=== PATIENT | male | born 1985 | race Hispanic/Latino ===

== ENCOUNTER 2017-05-01 12:56 | Emergency (ER) | payer SELFPAY ==
[2017-05-01] MEDS ORDERED: Adacel (T-DAP) 0.5 ML VIAL ONE (13:32)
--- NOTE | 2017-05-01 13:54 | RAD ---
3 VIEWS RIGHT HAND: Date: 05/01/17 COMPARISON: None. HISTORY: Right hand injury after falling on a window. FINDINGS: Three views of the right hand show no evidence of acute fracture or dislocation. Mild dorsal soft tis jeniffer swelling is seen. No radiopaque foreign body is seen. IMPRESSION: Unremarkable exam. POS: [facility]
--- NOTE | 2017-05-01 13:56 | RAD ---
RIGHT FOREARM 2 VIEWS: Date: 05/01/17 HISTORY: Injury, right forearm pain. FINDINGS/IMPRESSION: The right radius and ulna are intact. There are small radiopaque foreign bodies in the soft tissues o f the proximal right forearm, one located in the proximal ulnar soft tissues and the other posteriorl y close to the olecranon. POS: [facility]
[2017-05-01] MEDS ORDERED: Bacitracin Zinc 1 Packet ONE (14:25)
== END 2017-05-01 13:27 | disposition home or self-care (01) ==
LOC: ERS 12:56
DX: S50.811A Abrasion of right forearm, initial encounter (principal); S60.511A Abrasion of right hand, initial encounter; K21.9 Gastro-esophageal reflux disease without esophagitis; W25.XXXA Contact with sharp glass, initial encounter; Y92.69 Other specified industrial and construction area as the place of occurrence of the external cause; Y99.0 Civilian activity done for income or pay
CPT/HCPCS: 29125; 90471; 90715

== ENCOUNTER 2017-05-29 11:52 | Emergency (ER) | payer SELFPAY ==
--- NOTE | 2017-05-29 12:30 | RAD ---
CHEST ONE VIEW: HISTORY: Cough. COMPARISON: 07/07/2014 FINDINGS: Heart size and mediastinum are within normal limits. Lungs are clear of any infiltrative process. N o interval change since the prior exam. IMPRESSION: No active intrathoracic disease. POS: [facility]
[2017-05-29] MEDS ORDERED: Ibuprofen 200 MG TAB ONE (13:26)
== END 2017-05-29 13:15 | disposition home or self-care (01) ==
LOC: ERS 11:52
DX: J06.9 Acute upper respiratory infection, unspecified (principal); J01.90 Acute sinusitis, unspecified; K21.9 Gastro-esophageal reflux disease without esophagitis
CPT/HCPCS: 71045; 94640; 99406; J7620

== ENCOUNTER 2017-07-16 16:32 | Inpatient (IN) | payer SELFPAY ==
[2017-07-16] MEDS ORDERED: ISOVUE-370 76%-LOCM 1 ML ONE (16:41)
[2017-07-16] MEDS ORDERED: Iopamidol 370 76% 50 ML VIAL FS ONE (16:41)
[2017-07-16 17:16] LABS: #Eosinphils 0.2 thou/uL (0.0-0.7); #Lymphocytes 2.4 thou/uL (1.20-3.40); #Neutrophils 9.4 thou/uL (1.40-6.50); %Basophils 0.3 % (0.0-1.0); %Eosinophils 1.6 % (0.0-10.0); %Lymphocytes 18.6 % (21.0-51.0); %Monocytes 7.3 % (0.0-10.0); %Neutrophils 72.2 % (42.0-75.0); Hemoglobin 15.6 g/dL (14.0-18.0); Mean Corpuscular HGB CONC 34.4 g/dL (32.0-36.0); Mean Corpuscular Hemoglobin 30.7 pg (27.0-31.0); Mean Corpuscular Volume 89.1 fl (80.0-94.0); Mean Platelet Volume 7.3 fL (7.4-10.4); Platelet Count 269 thou/uL (130-400); RBC Distribution Width 12.4 % (11.5-14.5); Red Blood Cell (RBC) Count 5.08 mill/uL (4.70-6.10); White Blood Cell (WBC) Count 13.1 thou/uL (4.8-10.8)
[2017-07-16 17:32] LABS: ALT (SGPT) 37 U/L (8-55); AST (SGOT) 21 U/L (5-34); Albumin 4.2 g/dL (3.5-5.0); Alkaline Phosphatase 113 U/L (40-150); Anion Gap 13 mmol/L (10-20); BUN (Urea Nitrogen) 11 mg/dL (8.9-20.6); Bilirubin, Total 0.4 mg/dL (0.2-1.2); Calc. Creatinine Clearance 0 mL/min (70-130); Calcium 9.3 mg/dL (7.8-10.44); Carbon Dioxide 23 mmol/L (22-29); Chloride 104 mmol/L (98-107); Estimated GFR-MDRD Greater than 90; Globulin 3.4 g/dL (2.4-3.5); Glucose 103 mg/dL (70-105); Lipase 21 U/L (8-78); Potassium 3.9 mmol/L (3.5-5.1); Protein, Total 7.6 g/dL (6.0-8.3); Sodium 136 mmol/L (136-145)
[2017-07-16 17:33] LABS: Bilirubin Negative (Negative); Blood, Urine Negative (Negative); Clarity CLEAR (Clear); Glucose, Urine (Dipstick) Negative (Negative); Leukocyte Negative (Negative); Nitrite Negative (Negative); Protein, Urine (Dipstick) Negative (Neg-Trace); Specific Gravity, Urine 1.022 (1.002-1.036); Urobilinogen 0.2 mg/dL (0.2-1.0); pH, Urine 5.5 (5.0-9.0)
[2017-07-16] MEDS ORDERED: Ondansetron ODT 4 MG TAB ONE (21:11)
[2017-07-16] MEDS ORDERED: Morphine 4 MG/ML VIAL ONE ×2 (21:11→22:18)
--- NOTE | 2017-07-16 22:11 | CT ---
CT OF THE ABDOMEN AND PELVIS WITH CONTRAST: Comparison: None. History: Right upper quadrant and right lower quadrant abdominal pain as well as epigastric pain afte r eating. Technique: Multiple contiguous axial images were obtained through the abdomen and pelvis with contras t. PO contrast was administered. Coronal reformats were performed. FINDINGS: The liver, gallbladder, kidneys, adrenal glands, spleen, and pancreas are unremarkable. No free air, free fluid, or stranding changes are seen in the abdomen or pelvis. The large and small bowel are unremarkable. The appendix is unremarkable. No abdominal or pelvic lymp hadenopathy are seen. The osseous structures, visualized inferior thorax and abdominal wall soft tissues are unremarkable. IMPRESSION: No evidence of acute intraabdominal/pelvic abnormality. POS: [facility]
[2017-07-16] MEDS ORDERED: Azithromycin 500 MG VIAL ONE (22:18)
[2017-07-16] MEDS ORDERED: Vancomycin HCl 25 MG/ML Oral PO SCH (22:30)
[2017-07-16] MEDS ORDERED: Morphine 4 MG/ML VIAL SLOW IVP PRN (23:52)
[2017-07-16] MEDS ORDERED: Sodium Chloride 0.9% 1,000 ML IV SCH (23:53)
[2017-07-16] MEDS ORDERED: Ondansetron ODT 4 MG TAB SL PRN (23:53)
[2017-07-16] MEDS ORDERED: Acetaminophen 325 MG TAB PO PRN (23:53)
[2017-07-16] MEDS ORDERED: Ondansetron HCl/PF 4 MG/2 ML Vial IVP PRN (23:53)
[2017-07-17] MEDS ORDERED: Ondansetron HCl/PF 4 MG/2 ML Vial IVP PRN (02:09)
[2017-07-17] MEDS ORDERED: Enoxaparin Sodium 40 MG/0.4 ML SYRINGE SC SCH (02:09)
[2017-07-17] MEDS ORDERED: Acetaminophen 325 MG TAB PO PRN (02:09)
[2017-07-17] MEDS ORDERED: Ondansetron ODT 4 MG TAB PO PRN (02:09)
[2017-07-17 05:14] LABS: #Eosinphils 0.2 thou/uL (0.0-0.7); #Lymphocytes 2.8 thou/uL (1.20-3.40); #Monocytes 0.9 thou/uL (0.11-0.59); #Neutrophils 5.9 thou/uL (1.40-6.50); %Basophils 0.1 % (0.0-1.0); %Eosinophils 1.9 % (0.0-10.0); %Lymphocytes 28.9 % (21.0-51.0); %Neutrophils 60.2 % (42.0-75.0); Hemoglobin 13.9 g/dL (14.0-18.0); Mean Corpuscular HGB CONC 33.4 g/dL (32.0-36.0); Mean Corpuscular Hemoglobin 29.6 pg (27.0-31.0); Mean Corpuscular Volume 88.8 fl (80.0-94.0); Mean Platelet Volume 7.6 fL (7.4-10.4); Platelet Count 241 thou/uL (130-400); RBC Distribution Width 12.4 % (11.5-14.5); Red Blood Cell (RBC) Count 4.69 mill/uL (4.70-6.10); White Blood Cell (WBC) Count 9.7 thou/uL (4.8-10.8)
[2017-07-17] MEDS: HYDROcodone/Acetaminophen 5/325 mg Tablet PO PRN ×4 (05:48→21:02)
[2017-07-17 05:49] LABS: Anion Gap 13 mmol/L (10-20); BUN (Urea Nitrogen) 7 mg/dL (8.9-20.6); Calc. Creatinine Clearance 146 mL/min (70-130); Calcium 8.6 mg/dL (7.8-10.44); Carbon Dioxide 25 mmol/L (22-29); Chloride 103 mmol/L (98-107); Estimated GFR-MDRD Greater than 90; Glucose 81 mg/dL (70-105); Magnesium 2.2 mg/dL (1.6-2.6); Potassium 3.6 mmol/L (3.5-5.1); Sodium 137 mmol/L (136-145)
[2017-07-17] MEDS: Ciprofloxacin 500 MG TAB PO SCH ×2 (05:49→20:10)
[2017-07-17] MEDS ORDERED: Vancomycin HCl 25 MG/ML Oral PO SCH (06:00)
--- NOTE | 2017-07-17 06:04 | HP ---
DATE OF ADMISSION: 07/17/2017 TIME OF SERVICE: 0300 PRIMARY CARE PHYSICIAN: Breanne. CHIEF COMPLAINT: Abdominal pain and diarrhea. HISTORY OF PRESENT ILLNESS: Mr. Rogers is a 32-year-old man with no past medical hist ory except for gastroesophageal reflux who presents to the emergency department today for evaluation of ongoing abdominal pain and diarrhea. The patient states approximately 2 weeks ago he started having abdominal cramps and then diarrhea of increasing frequency, basically having watery stools 10 times a day now. He has mainly right upper a nd right lower quadrant pain, but his whole belly is distended and tender. He has had no fevers or c hills. No nausea and vomiting. No chest pain or shortness of breath. He is able to eat and keep st uff down, he has some epigastric pain after eating. The patient saw his PCP about 5 days ago, was ap parently put on some medications and is currently awaiting results. Workup in the ER revealed watery stools, no gross blood and per their notes some peritoneal signs, wh ich I cannot reproduce. The patient denies any recent travel, no undercooked foods, no bad or rotten foods, and lives on city [place]. PAST MEDICAL HISTORY: Gastroesophageal reflux disease. PAST SURGICAL HISTORY: None. HOME MEDICATIONS: Dicyclomine 20 mg p.o. q.i.d. p.r.n. abdominal spasm, no recent antibiotics. ALLERGIES: NKDA. FAMILY HISTORY: Negative for clotting or bleeding disorder. No immune dysfunction. SOCIAL HISTORY: Significant for social alcohol and some marijuana use. No tobacco or IV drug use. No recent travel. No imported foods. No livestock contact and no sick contacts. REVIEW OF SYSTEMS: A 10-point review of systems was performed and is negative for all systems except as stated in HPI. PHYSICAL EXAMINATION: VITAL SIGNS: Temperature 98.5, pulse 100, blood pressure 129/85, respiratory rate 16, satting 98% on room air. Since admission, his heart rate has come down in the 80s. GENERAL: He is awake. He is alert. He is oriented x3, well-developed, well-nourished [place] H[place] n male appears to be in no distress. HEENT: Normocephalic, atraumatic. Pupils equal, round, react to light bilaterally. Mucous membrane s moist. No visible lesion. No thrush. NECK: Supple, without lymphadenopathy, JVD, or thyromegaly. Normal carotid upstroke. There are no bruits. RESPIRATORY: Lungs clear to auscultation bilaterally. He has good air movement. Symmetrical chest excursion. No wheezes, no rales, no rhonchi. CARDIOVASCULAR: Normal cardiac and regular. Normal S1 and S2. No S3 or S4. No murmurs, no rubs. ABDOMEN: Soft, is distended and tympanitic. He has scant high pitched bowel sounds present in all 4 quadrants. He is tender to palpation diffusely. There is no rebound. He has no guarding. No dariusz toneal signs with heel tap. EXTREMITIES: No cyanosis or clubbing. Trace pedal edema. He has 2+ dorsalis pedis, and posterior t ibial pulses bilaterally. SKIN: Warm, moist, and well perfused. He has no rashes, no lesions. MUSCULOSKELETAL: Normal to inspection. No inflamed joints. No palpable effusions. He had good ran ge of motion. NEUROLOGIC: Cranial nerves II-XII to be grossly intact. He has no focal neurologic deficits, normal speech, 5/5 strength in all 4 extremities and no discoordination. LABORATORY DATA: Sodium 136, potassium 3.8, chloride 104, bicarb 23, BUN 11, creatinine 0.82, glucos e of 103, and calcium of 9.3. The liver function, bilirubin within normal limits. CBC showed a whit e count 13.1 with normal differential, hemoglobin 15.6, hematocrit of 45.2, platelet count is 269,000 . Stool studies showed C. diff positive for antigen and toxin, Campylobacter positive, Shigella negativ e, fecal occult blood positive and fecal leukocytes positive. Rapid parasite negative. Urinalysis w as clean. A CT scan of the abdomen and pelvis showed no acute intra-abdominal abnormalities. ASSESSMENT AND PLAN: 1. Infectious colitis. The patient was positive for C. diff and Campylobacter. We will cover those . He is having mostly watery diarrhea, no visible blood. I suspect Clostridium difficile is really the culprit and he is just positive for Campylobacter. He received azithromycin in the Emergency Dep artment, and vancomycin 125 p.o. We will increase him to 250 p.o. q.i.d. of the vancomycin and 500 mg of Cipro b.i.d. Continue IV fluids at 125 mL per hour. Repeat morning labs. Once he is able to ke ep up with outputs he should be able to go home and finish his treatment. 2. Systemic inflammatory response syndrome versus early sepsis, heart rate on arrival was over 100, elevated white blood cell count and a bacterial infection of the abdomen. Lactic acid was not perfor med and after getting fluids it is likely not going to be helpful at this point. This was present on admission, as was the Clostridium difficile. Continue hydration.
[2017-07-17] MEDS: Sodium Chloride 0.9% 1,000 ML IV SCH ×3 (06:27→20:16)
[2017-07-17] MEDS: Vancomycin HCl 25 MG/ML Oral PO SCH ×4 (08:04→21:05)
[2017-07-17] MEDS: Famotidine 20 MG TAB PO SCH ×2 (08:04→20:57)
[2017-07-17] MEDS: Enoxaparin Sodium 40 MG/0.4 ML SYRINGE SC SCH (08:05)
--- NOTE | 2017-07-17 10:12 | PDOC.PN ---
- Subjective Encounter Start Date: 07/17/17 Encounter Start Time: 10:05 Subjective: f/u for infectious colitis with C. difficile and ?Campylobacter on Cipro an -: Vancomycin po. Feeling a little better overall. - Objective Resuscitation Status: Resuscitation Status FULL:Full Resuscitation MAR Reviewed: Yes Vital Signs & Weight: Vital Signs (12 hours) Temp Pulse Resp BP Pulse Ox 07/17/17 08:00 97.9 F 70 20 113/73 94 L 07/17/17 02:09 97.5 F L 85 18 107/68 94 L 07/16/17 23:50 98.4 F 97 18 118/72 94 L Weight Weight 190 lb 14.725 oz I&O: 07/16/17 07/17/17 07/18/17 06:59 06:59 06:59 Intake Total 500 180 Balance 500 180 Result Diagrams: 07/17/17 04:21 07/17/17 04:21 Additional Labs: Microbiology 07/16/17 18:20 Stool - Pending Stool Occult Blood (CARO) - Final 07/16/17 18:20 Stool - Pending Stool Lactoferrin - Final 07/16/17 18:20 Stool - Pending Rapid Parasite Screen - Final 07/16/17 18:20 Stool - Pending Campylobacter Antigen Assay - Final 07/16/17 18:20 Stool - Pending Shiga Toxin Test - Final 07/16/17 18:20 Stool - Pending C. difficile GDH Antigen & Toxins - Final Laboratory Tests 07/16/17 17:01 WBC 13.1 H Radiology Reviewed by me: Yes (CT abd/pel - no acute process) Phys Exam - Physical Examination Constitutional: NAD HEENT: PERRLA, moist MMs, oral pharynx no lesions Neck: no nodes, no JVD, supple Respiratory: no wheezing, no rales, no rhonchi, clear to auscultation bilateral Cardiovascular: RRR mild TTP in RUQ, no rebound or guarding Gastrointestinal: soft, no distention, positive bowel sounds Musculoskeletal: no edema, pulses present Neurological: non-focal, normal sensation, moves all 4 limbs Psychiatric: A&O x 3 Skin: no rash, normal turgor, cap refill <2 seconds Dx/Plan (1) Infectious colitis Code(s): A09 - INFECTIOUS GASTROENTERITIS AND COLITIS, UNSPECIFIED Status: Acute Comment: + C. difficile, continue Vancomycin 250mg po QID, continue Cipro with + Campylobacter, continue IVF's, antiemetics prn (2) SIRS (systemic inflammatory response syndrome) Code(s): R65.10 - SIRS OF NON-INFECTIOUS ORIGIN W/O ACUTE ORGAN DYSFUNCTION Status: Acute Comment: Secondary to #1, continue tx as outlined in #1 (3) Abdominal pain Code(s): R10.9 - UNSPECIFIED ABDOMINAL PAIN Status: Acute Qualifiers: Abdominal location: right lower quadrant Qualified Code(s): R10.31 - Right lower quadrant pain Comment: Secondary to #1, supportive mgmt, pain control as indicated (4) GERD (gastroesophageal reflux disease) Code(s): K21.9 - GASTRO-ESOPHAGEAL REFLUX DISEASE WITHOUT ESOPHAGITIS Status: Chronic Comment: Continue Pepcid 20mg BID - Plan continue antibiotics, DVT proph w/SCDs Stable currently -: Continue Vancomycin 250mg QID -: Continue Cipro 500mg BID -: Continue IVF's -: AM lab: BMP, CBC * .
[2017-07-18] MEDS: HYDROcodone/Acetaminophen 5/325 mg Tablet PO PRN ×2 (04:39→11:36)
[2017-07-18 05:00] LABS: Hemoglobin 14.1 g/dL (14.0-18.0); Lymphocytes 34 % (21-51); MDiff Complete? YES; Mean Corpuscular HGB CONC 33.6 g/dL (32.0-36.0); Mean Corpuscular Hemoglobin 29.9 pg (27.0-31.0); Mean Corpuscular Volume 89.1 fl (80.0-94.0); Mean Platelet Volume 7.3 fL (7.4-10.4); Monocytes 10 % (0-10); Neutrophil 54 % (42-75); Platelet Count 245 thou/uL (130-400); RBC Distribution Width 12.3 % (11.5-14.5); Reactive Lymphocytes 1 % (0-10); White Blood Cell (WBC) Count 7.5 thou/uL (4.8-10.8)
[2017-07-18 05:06] LABS: Anion Gap 9 mmol/L (10-20); BUN (Urea Nitrogen) 6 mg/dL (8.9-20.6); Calc. Creatinine Clearance 172 mL/min (70-130); Calcium 8.8 mg/dL (7.8-10.44); Carbon Dioxide 27 mmol/L (22-29); Chloride 105 mmol/L (98-107); Estimated GFR-MDRD Greater than 90; Glucose 89 mg/dL (70-105); Magnesium 2.2 mg/dL (1.6-2.6); Potassium 3.9 mmol/L (3.5-5.1); Sodium 137 mmol/L (136-145)
[2017-07-18] MEDS: Ciprofloxacin 500 MG TAB PO SCH (05:26)
[2017-07-18] MEDS: Enoxaparin Sodium 40 MG/0.4 ML SYRINGE SC SCH (08:30)
[2017-07-18] MEDS: Sodium Chloride 0.9% 1,000 ML IV SCH (08:30)
[2017-07-18] MEDS: Vancomycin HCl 25 MG/ML Oral PO SCH ×2 (08:30→11:36)
[2017-07-18] MEDS: Famotidine 20 MG TAB PO SCH (08:34)
[2017-07-18 13:32] VITALS: BP 154/82; TEMP 98.2
--- NOTE | 2017-07-18 14:07 | DIS ---
DATE OF ADMISSION: 07/16/2017 DATE OF DISCHARGE: 07/18/2017 DISCHARGE DIAGNOSES: 1. Clostridium difficile infectious colitis. 2. Campylobacter antigen positive. 3. Systemic inflammatory response syndrome. 4. Abdominal pain secondary to #1, improved. 5. Gastroesophageal reflux disease, stable. CONSULTATIONS: None. PERTINENT LABORATORY AND X-RAY FINDINGS: Complete metabolic profile within normal limits. CBC showe d a white blood cell count ranging between 7.5-13.1, hemoglobin ranged between 13.9-15.6. Urinalysis negative. Campylobacter antigen positive on 07/16/2017. Stool lactoferrin positive on 07/16/2017. C. difficile antigen and toxin positive on 07/16/2017. CT of the abdomen and pelvis dated 8 showed no acute intra-abdominal process. HOSPITAL COURSE: The patient was admitted to the medical floor after initially presenting with abdom inal pain and diarrhea with C. difficile antigen and toxin positivity as well as Campylobacter antige n positive. The patient was placed on oral ciprofloxacin and vancomycin 250 mg q.i.d. The patient w as also placed on IV fluids and given antiemetics and pain control. The patient clinically improved within 48 hours of admission with diminished stool frequency and resolution of abdominal pain. The p atient was able tolerate oral intake and ambulating without assistance or difficulty. Current recomm endations are to continue vancomycin 250 mg q.i.d. for 10 days post-discharge. I have examined the p atient and discussed laboratory findings, disposition instructions and discharge planning, at which p oint the patient has verbalized agreement and understanding. The patient overall clinically stable a nd ready for discharge 07/18/2017. DISCHARGE MEDICATIONS: 1. Vancomycin 250 mg p.o. q.i.d. x10 days. 2. Ciprofloxacin 500 mg p.o. b.i.d. x5 days. FOLLOWUP: The patient will follow up with [facility] [place] within 7 days of discharge. CONDITION ON DISCHARGE: Stable. ACTIVITY: Ad sherrie. DIET: Regular. CODE STATUS: Full. DISPOSITION: Home on 07/18/2017.
== END 2017-07-18 14:38 | disposition home or self-care (01) | DRG 372 ==
LOC: ERS 16:32 → T4-A 22:19
PROVIDERS: ADMIT Internal Medicine Infectious Disease; ATTEND Internal Medicine Infectious Disease
DX: A04.72 Enterocolitis due to Clostridium difficile, not specified as recurrent (principal); R65.10 Systemic inflammatory response syndrome (SIRS) of non-infectious origin without acute organ dysfunction; K21.9 Gastro-esophageal reflux disease without esophagitis; A04.5 Campylobacter enteritis
CPT/HCPCS: 36415; 74177; 80048; 80053; 81003; 82274; 83630; 83690; 83735; 85007; 85025; 85027; 87045; 87046; 87324; 87328; 87329; 87449; 87899; 96365; 96375; 96376; J0456; J1650; J2270; Q0162

== ENCOUNTER 2017-08-06 08:10 | Inpatient (IN) | payer SELFPAY ==
[~2017-08-06 08:10] MED LIST: ISOVUE-370 76%-LOCM 1 ML ONE; Iopamidol 370 76% 50 ML VIAL FS ONE
[2017-08-06 08:46] LABS: #Eosinphils 0.1 thou/uL (0.0-0.7); #Lymphocytes 1.3 thou/uL (1.20-3.40); #Monocytes 0.7 thou/uL (0.11-0.59); %Basophils 0.3 % (0.0-1.0); %Eosinophils 1.2 % (0.0-10.0); %Lymphocytes 18.2 % (21.0-51.0); %Monocytes 10.1 % (0.0-10.0); %Neutrophils 70.2 % (42.0-75.0); Hemoglobin 15.3 g/dL (14.0-18.0); Mean Corpuscular HGB CONC 33.7 g/dL (32.0-36.0); Mean Corpuscular Hemoglobin 29.6 pg (27.0-31.0); Mean Corpuscular Volume 88.1 fl (80.0-94.0); Mean Platelet Volume 8.1 fL (7.4-10.4); Platelet Count 187 thou/uL (130-400); RBC Distribution Width 12.6 % (11.5-14.5); Red Blood Cell (RBC) Count 5.17 mill/uL (4.70-6.10); White Blood Cell (WBC) Count 7.2 thou/uL (4.8-10.8)
[2017-08-06] MEDS ORDERED: Morphine 4 MG/ML VIAL ONE (08:48)
[2017-08-06 09:06] LABS: ALT (SGPT) 53 U/L (8-55); AST (SGOT) 31 U/L (5-34); Albumin 4.3 g/dL (3.5-5.0); Alkaline Phosphatase 95 U/L (40-150); Anion Gap 14 mmol/L (10-20); BUN (Urea Nitrogen) 10 mg/dL (8.9-20.6); Bilirubin, Total 0.8 mg/dL (0.2-1.2); Calc. Creatinine Clearance 0 mL/min (70-130); Calcium 8.8 mg/dL (7.8-10.44); Carbon Dioxide 22 mmol/L (22-29); Chloride 103 mmol/L (98-107); Estimated GFR-MDRD Greater than 90; Globulin 3.3 g/dL (2.4-3.5); Glucose 99 mg/dL (70-105); Lipase 12 U/L (8-78); Potassium 3.7 mmol/L (3.5-5.1); Protein, Total 7.6 g/dL (6.0-8.3); Sodium 135 mmol/L (136-145)
--- NOTE | 2017-08-06 10:27 | RAD ---
PORTABLE CHEST: Date: 08/06/17 HISTORY: Dyspnea. COMPARISON: 05/29/17. FINDINGS: Markings are increased in the left lung base. I cannot exclude early infiltrate in this region when c ompared to the prior study. Recommend close follow-up and recommend follow-up films be performed with upright PA and lateral views for better evaluation of the lung bearden. No other acute finding or change. IMPRESSION: Question new infiltrate in the left lung base when compared to the prior exam. Follow-up recommended. POS: [facility]
[2017-08-06] MEDS ORDERED: Piperacillin/Tazobactam 4.5 GM in Sodium Chloride 0.9% 100 ML IVPB SCH (10:30)
[2017-08-06] MEDS ORDERED: Acetaminophen 500 MG TAB ONE (10:51)
--- NOTE | 2017-08-06 11:11 | CT ---
CT ABDOMEN AND PELVIS WITH CONTRAST: Date: 08/06/17 Multiple axial tomograms obtained through the abdomen and pelvis with IV enhancement. INDICATION: Abdominal pain. Cough. Nausea. FINDINGS: Images through the lung bases show patchy infiltrate in the left lung base, which is concerning for p neumonia. This is significant given the history of cough. Liver, spleen, and pancreas are unremarkable. Adrenal glands unremarkable. There is mild fullness to the left renal pelvis; however, this may reflect an extrarenal pelvis rathe r than obstructive change. There is no evidence of urinary calculus. The ureters are normal caliber. The urinary bladder is unremarkable. Nonspecific distention of small bowel loops is seen. Appendix appears normal. Colon unremarkable. Aor ta normal caliber. No adenopathy. IMPRESSION: 1. There is patchy infiltrate in the left lung base consistent with an infectious/inflammatory infil trate. Close follow-up recommended. This infiltrate is identified on portable film, although not as c onspicuous as on the CT exam through the lung bases. 2. Mild prominence of the left renal pelvis, possibly representing an extrarenal pelvis. This could represent a low grade UPJ obstruction. 3. Nonspecific distention of small bowel loops, which could represent enteritis or mild ileus. POS: [facility]
[2017-08-06] MEDS ORDERED: Ondansetron ODT 4 MG TAB PO PRN (11:53)
[2017-08-06] MEDS ORDERED: Ondansetron HCl/PF 4 MG/2 ML Vial IVP PRN (11:53)
[2017-08-06 12:31] VITALS: BMI 36.7
[2017-08-06] MEDS ORDERED: Albuterol Sulfate 2.5 mg/3 ml Neb NEB PRN (12:58)
[2017-08-06] MEDS ORDERED: cefTRIAXone\\ROCEPHIN 1 GM in Sodium Chloride 0.9% 100 ML IVPB SCH (13:00)
[2017-08-06] MEDS: Acetaminophen 325 MG TAB PO PRN ×2 (13:29→20:47)
[2017-08-06] MEDS: cefTRIAXone\\ROCEPHIN 1 GM, Syringe 0.4 ML in Sterile Water 9.6 ML SLOW IVP SCH (13:38)
[2017-08-06] MEDS: Sodium Chloride 0.9% 1,000 ML IV SCH ×2 (15:27→20:42)
--- NOTE | 2017-08-06 15:48 | HP ---
DATE OF ADMISSION: 08/06/2017 CHIEF COMPLAINT: Shortness of breath and abdominal pain. HISTORY OF PRESENT ILLNESS: The patient was recently admitted to the hospital for abdominal pain and diarrhea and was diagnosed with C. difficile infection. The patient was thoroughly treated for C. d ifficile infection during the last admission with p.o. vancomycin and was discharged home. The patie nt was noted to have severe abdominal pain not associated with vomiting and no diarrhea. A CT of the abdomen was done in the ER, which did not show any evidence of intra-abdominal abscess, but did show evidence of enteritis, which was possibly from the recent infection but there was also an incidental finding of pneumonia in the left upper lobe. A chest x-ray was also done, which also confirmed pneu monia on the left lung. Patient has no history of smoking, no history of alcohol. Most likely the p neumonia could be related to the hospital acquired. When he presented to the ER, he had hypoxic epis ode with saturation in 80s. The patient complains of a pleuritic chest pain in the left precordium. He also had a fever of 101 in the ER. PAST MEDICAL HISTORY: GERD. PAST SURGICAL HISTORY: None. SOCIAL HISTORY: The patient has a significant history of alcohol and he does use marijuana. No hist ory of tobacco or IV drug use. REVIEW OF SYSTEMS: All 12 systems are reviewed with the patient thoroughly and found to be negative at this time. Systems reviewed are HEENT, CVS, LEASE EXAMINER, respiratory, GI, , musculoskeletal, skin and i ntegument, psychiatric. ALLERGIES: No known drug allergies. HOME MEDICATIONS: None. PHYSICAL EXAMINATION: VITAL SIGNS: Blood pressure is 118/72, heart rate is 87, respiration rate is 18, and saturation was 83% on room air. GENERAL: The patient is seen lying in the bed supine, does not appear to be in acute distress. He i s alert and oriented. HEENT: Atraumatic, normocephalic. PERRLA. Extraocular movements were intact. Oral mucosa is pink and moist. CARDIOVASCULAR: S1 and S2 normal. No murmurs, rubs, or gallops. LUNGS: Bilateral air entry was equal. No wheezing, no crackles. ABDOMEN: Soft, nontender, no guarding, no rebound tenderness. Bowel sounds normal. MUSCULOSKELETAL: No calf tenderness. No pedal edema. No joint tenderness, no joint swelling. SKIN: No cyanosis or erythema, no rash, no pallor. CENTRAL NERVOUS SYSTEM: Cranial nerve examination II-XII intact. No focal deficits were noted. PSYCHIATRIC: No symptoms or additional signs of elva. LABORATORY DATA: WBC 7.2, hemoglobin 15.3, hematocrit is 45.6, platelets 187. Sodium 135, potassium 3.7, chloride 103, bicarbonate is 22, BUN is 10, creatinine 0.8, and lactic acid 0.8. IMAGING DATA: 1. Chest x-ray was done and showing evidence of left lower lobe infiltrate. 2. CT of the abdomen and pelvis was also done in the ER, which showed a patchy infiltrate in the lef t lung base consistent with infectious process. Mild prominence of the left renal pelvis, possibly r epresenting extrarenal pelvis, nonspecific distention of small bowel loops, which could represent ent eritis or mild ileus was noted. ASSESSMENT: 1. Acute healthcare-associated pneumonia, left lung. 2. Acute hypoxic respiratory failure. 3. Acute abdominal ileus from recent Clostridium difficile infection. PLAN: 1. Plan is to closely monitor this patient at this time, we will start the patient on Rocephin and l evofloxacin, and we would add vancomycin if he develops persistent fevers and elevated white count. 2. We will treat this as a hospital-acquired pneumonia. We will continue with albuterol nebulizatio n and DuoNebs. 3. The patient has hypoxic respiratory failure. We will continue to monitor this patient. We will put him on incentive spirometry. 4. Patient has abdominal ileus, was a recent C. difficile infection. Initial CT did not show any ac saúl inflammatory process, but we will consult General Surgery if the patient's abdominal pain gets wo rsen. 5. DVT prophylaxis with Lovenox. I spent 75 minutes with this patient.
[2017-08-06] MEDS: HYDROcodone/Acetaminophen 5/325 mg Tablet PO PRN (18:58)
[2017-08-06] MEDS: Guaifenesin DM 100-10/5 ML UDCUP PO PRN (18:58)
[2017-08-06] MEDS: Famotidine 20 MG TAB PO SCH (20:45)
[2017-08-07] MEDS: HYDROcodone/Acetaminophen 5/325 mg Tablet PO PRN ×2 (02:48→14:41)
[2017-08-07 05:30] LABS: #Eosinphils 0.1 thou/uL (0.0-0.7); #Lymphocytes 1.1 thou/uL (1.20-3.40); #Monocytes 0.5 thou/uL (0.11-0.59); #Neutrophils 2.8 thou/uL (1.40-6.50); %Basophils 0.5 % (0.0-1.0); %Eosinophils 1.6 % (0.0-10.0); %Lymphocytes 24.7 % (21.0-51.0); %Monocytes 11.4 % (0.0-10.0); %Neutrophils 61.9 % (42.0-75.0); Hemoglobin 14.2 g/dL (14.0-18.0); Mean Corpuscular Hemoglobin 29.5 pg (27.0-31.0); Mean Corpuscular Volume 89.3 fl (80.0-94.0); Mean Platelet Volume 8.4 fL (7.4-10.4); Platelet Count 172 thou/uL (130-400); RBC Distribution Width 12.4 % (11.5-14.5); Red Blood Cell (RBC) Count 4.82 mill/uL (4.70-6.10); White Blood Cell (WBC) Count 4.5 thou/uL (4.8-10.8)
[2017-08-07 05:46] LABS: Anion Gap 11 mmol/L (10-20); BUN (Urea Nitrogen) 7 mg/dL (8.9-20.6); Calc. Creatinine Clearance 211 mL/min (70-130); Calcium 8.1 mg/dL (7.8-10.44); Carbon Dioxide 23 mmol/L (22-29); Chloride 107 mmol/L (98-107); Estimated GFR-MDRD Greater than 90; Glucose 85 mg/dL (70-105); Potassium 3.8 mmol/L (3.5-5.1); Sodium 137 mmol/L (136-145)
[2017-08-07] MEDS: Famotidine 20 MG TAB PO SCH ×2 (08:31→20:42)
[2017-08-07] MEDS: Enoxaparin Sodium 40 MG/0.4 ML SYRINGE SC SCH (08:32)
[2017-08-07] MEDS: Guaifenesin DM 100-10/5 ML UDCUP PO PRN (08:40)
[2017-08-07] MEDS: Sodium Chloride 0.9% 1,000 ML IV SCH ×2 (14:37→20:42)
[2017-08-07] MEDS: cefTRIAXone\\ROCEPHIN 1 GM, Syringe 0.4 ML in Sterile Water 9.6 ML SLOW IVP SCH (14:38)
--- NOTE | 2017-08-07 15:28 | PDOC.PN ---
- Subjective Encounter Start Date: 08/07/17 Encounter Start Time: 12:00 Patient is seen today, alert and oriented. Diarrhea improved, No abdominal pain , pt has persistant cough, suspecting Hospital acquired Pneumonia. - Objective Resuscitation Status: Resuscitation Status FULL:Full Resuscitation MAR Reviewed: Yes Vital Signs & Weight: Vital Signs (12 hours) Temp Pulse Resp BP Pulse Ox 08/07/17 08:00 99.8 F H 78 16 115/75 93 L 08/07/17 04:04 98 08/07/17 04:00 98.9 F 77 20 104/64 96 Weight Weight 234 lb 8 oz I&O: 08/06/17 08/07/17 08/08/17 06:59 06:59 06:59 Intake Total 1008 Balance 1008 Result Diagrams: 08/07/17 04:25 08/07/17 04:25 Radiology Reviewed by me: Yes Phys Exam - Physical Examination HEENT: PERRLA, moist MMs Neck: no nodes, no JVD Respiratory: no wheezing, no rales Cardiovascular: RRR, no significant murmur Gastrointestinal: soft, non-tender Musculoskeletal: no edema, pulses present Neurological: non-focal, normal sensation Lymphatic: no nodes Dx/Plan (1) Hospital acquired PNA Code(s): J18.9 - PNEUMONIA, UNSPECIFIED ORGANISM Status: Acute (2) Abdominal pain Code(s): R10.9 - UNSPECIFIED ABDOMINAL PAIN Status: Acute Qualifiers: Abdominal location: right lower quadrant Qualified Code(s): R10.31 - Right lower quadrant pain Comment: Secondary to #1, supportive mgmt, pain control as indicated (3) GERD (gastroesophageal reflux disease) Code(s): K21.9 - GASTRO-ESOPHAGEAL REFLUX DISEASE WITHOUT ESOPHAGITIS Status: Chronic Comment: Continue Pepcid 20mg BID - Plan cont current plan of care, continue antibiotics, PT/OT, social sciences chair, respiratory therapy, incentive spirometry, DVT proph w/lovenox * . - Discharge Day Encounter end time: 12:00 Review of Systems - Review of Systems Eyes: negative: Pain, Vision Change, Conjunctivae Inflammation, Eyelid Inflammation, Redness, Other Respiratory: negative: Cough, Dry, Shortness of Breath, Hemoptysis, SOB with Excertion, Pleuritic Pain, Sputum, Wheezing Cardiovascular: negative: chest pain, palpitations, orthopnea, paroxysmal nocturnal dyspnea, edema, light headedness, other Gastrointestinal: negative: Nausea, Vomiting, Abdominal Pain, Diarrhea, Constipation, Melena, Hematochezia, Other Musculoskeletal: negative: Neck Pain, Shoulder Pain, Arm Pain, Back Pain, Hand Pain, Leg Pain, Foot Pain, Other - Medications/Allergies Allergies/Adverse Reactions: Allergies Allergy/AdvReac Type Severity Reaction Status Date / Time No Known Drug Allergies Allergy Verified 08/06/17 12:29 Medications: Current Medications Acetaminophen (Tylenol) 650 mg PO Q4H PRN PRN Reason: Headache/Fever or Pain Last Admin: 08/06/17 20:47 Dose: 650 mg Hydrocodone Bitart/Acetaminophen (Stinnett 5/325) 1 tab PO Q4H PRN PRN Reason: Moderate Pain (4-6) Last Admin: 08/07/17 14:41 Dose: 1 tab Albuterol Sulfate (Ventolin) 2.5 mg NEB Q2H PRN PRN Reason: Wheezing Albuterol/Ipratropium (Duoneb) 3 ml NEB [id number] PRN PRN Reason: SOB &/or Wheezing Enoxaparin Sodium (Lovenox) 40 mg SC 0900 [facility] Last Admin: 08/07/17 08:32 Dose: 40 mg Famotidine (Pepcid) 20 mg PO BID [facility] Last Admin: 08/07/17 08:31 Dose: 20 mg Guaifenesin/Dextromethorphan (Robitussin Dm) 15 ml PO Q4H PRN PRN Reason: Cough Last Admin: 08/07/17 08:40 Dose: 15 ml Levofloxacin 750 mg/ Device 150 mls @ 100 mls/hr IVPB 1200 [facility] Last Admin: 08/07/17 12:10 Dose: 150 mls Ceftriaxone Sodium 1 gm/ (Syringe 0.4 ml/ Sterile Water) 10 mls @ 120 mls/hr SLOW IVP 1400 [facility] Last Admin: 08/07/17 14:38 Dose: 10 mls Sodium Chloride (Normal Saline 0.9%) 1,000 mls @ 100 mls/hr IV .Q10H [facility] Last Admin: 08/07/17 14:37 Dose: 1,000 mls Loperamide HCl (Imodium) 1 mg PO Q8H PRN PRN Reason: Diarrhea/Loose Stools Last Admin: 05/06/18 21:32 Dose: 1 mg Sodium Chloride (Flush - Normal Saline) 10 ml IVF Q12HR [facility] Last Admin: 08/07/17 08:31 Dose: 10 ml Sodium Chloride (Flush - Normal Saline) 10 ml IVF PRN PRN PRN Reason: Saline Flush
[2017-08-08] MEDS: HYDROcodone/Acetaminophen 5/325 mg Tablet PO PRN ×2 (01:23→07:39)
[2017-08-08] MEDS: Sodium Chloride 0.9% 1,000 ML IV SCH ×2 (04:33→16:22)
[2017-08-08] MEDS: Enoxaparin Sodium 40 MG/0.4 ML SYRINGE SC SCH (07:40)
[2017-08-08] MEDS: Famotidine 20 MG TAB PO SCH ×2 (07:40→20:13)
[2017-08-08 09:10] LABS: HBSAg Index 0.29 S/CO (0-0.99); Hep B Surf Ag Non-Reactive S/CO (NonReactive)
[2017-08-08 09:11] LABS: HIV (1/2) Antibody/Antigen Non-Reactive (NonReactive); HIV 1/2 INDEX 0.09 S/CO (<1.00); Hep C IgG Ab Non-Reactive (NonReactive); Hep C Index 0.18 S/CO (0-0.79)
--- NOTE | 2017-08-08 10:02 | CT ---
CT CHEST WIHTOUT CONTRAST: HISTORY: Pneumonia. COMPARISON: Chest 1 view 08/06/17. FINDINGS: Calcified pulmonary nodule in the right upper lobe series 3 image 21. There is also a well-defined 3 mm nodule anterior segment right upper lobe series 3 image 21. There are patchy centrilobular pulmo nary nodules in both lower lobes, worse in the left lower lobe. There are also patchy opacities in t he superior segments of both lower lobes as well as in the lingula. No pneumothorax. There is no significant effusion. No pericardial effusion. Small AP window medias tinal lymph nodes are not pathologically enlarged. Mild diverticular disease of the splenic flexure. No thoracic spine compression fracture. No rib fracture. IMPRESSION: Findings most suggestive of multifocal bronchopneumonia. Followup radiographs after treatment recomm ended. POS: [facility]
[2017-08-08] MEDS: Vancomycin HCl 25 MG/ML Oral PO SCH ×4 (10:09→20:13)
[2017-08-08 10:38] LABS: Amphetamine Not Detected (NotDetected); Barbiturates Screen Not Detected (NotDetected); Benzodiazepine Screen Not Detected (NotDetected); Cocaine Metabolite Screen Not Detected (NotDetected); Medtox Control Line Valid? VALID (VALID); Medtox Reader # READER 1; Methadone Not Detected (NotDetected); Methamphetamine Not Detected (NotDetected); Opiate Screen Detected (NotDetected); Oxycodone Screen Not Detected (NotDetected); Phencyclidine (PCP) Not Detected (NotDetected); THC/Cannabinoid Screen Detected (NotDetected); Tricyclic Screen Not Detected (NotDetected)
[2017-08-08] MEDS: Lactinex Tablet PO SCH (11:23)
--- NOTE | 2017-08-08 12:25 | CON ---
DATE OF CONSULTATION: 08/08/2017 REASON FOR CONSULTATION: Diarrhea, recent episode of Clostridium difficile. HISTORY OF PRESENT ILLNESS: Mr. Vishnu Rogers is a 32-year-old gentleman who was recently in this spital from 07/16/2017 to 07/18/2017. He initially presented at that time with diarrhea and had stoo l that came back positive for C. diff and also Campylobacter antigen. He was discharged on Levaquin and vancomycin. It is unclear what he took. Some reports received said that his was present, t jhoany could not afford the vancomycin and he was taking Levaquin, but then he states when I have talked to him with senior analytic consultant that he took the medicines, but then when he went to the [facility] for fol lowup they told him to stop the medicines as they can be dangerous for him, but it appears that he go t an inadequate course of just about everything. As far as an etiology, the patient does report that he did not feel well before that admission and wing d taken a couple of amoxicillin that he had at home. At that admission, he did have a CAT scan of ab domen and pelvis that was normal. He states that he came back to the hospital 2 days ago on Monday for just not feeling good all over, having some fever and chills. He was having diarrhea 7-8 times p er day as well. He did not see any overt blood in his diarrhea, although he was heme positive at the last admission. He reports back on Monday he did drink some beer and he did smoke marijuana. He st ates he occasionally uses cocaine and he did some of that on Monday, too. He denies any associated abdominal pain. He denies any IV drug use. He began to have a cough prior to this admission as well. In the emergency room, he was mildly hypoxic. Apparently he reports that he gets short of breath with ambulation. A CAT scan of abdomen and pelvis on 08/06/2017 showed a mi ld ileus, but nonspecific distention of some small bowel loops. He also had a patchy infiltrate in t he left lung base. A CAT scan of the chest performed today shows patchy infiltrate in the left lung base, a 3 mm nodule in the right upper lobe and patchy centrilobular pulmonary nodules in both lower lobes, worse in the left and opacities and spear segments of both lower lobes as well as in the lingu al. This was felt to represent a multifocal bronchopneumonia. Here at this admission his white count was 7.2 on admission, it is down to 4.5 today. His differenti al is normal. He is not anemic. White count was 13 last admission. On 08/06/2017 his comp met prof ile including lipase were normal. Urine was negative. Tox screen showed cannabinoids and some opiat e, that is from today. PAST MEDICAL HISTORY: Negative. PAST SURGICAL HISTORY: Negative. ALLERGIES: None. SOCIAL HISTORY: Positive for alcohol use weekly, he binge drinks on the weekends. It sounds like he has used some marijuana occasionally on the weekends and has actually used cocaine as well. He carmenza es any IV drug use. FAMILY HISTORY: Negative for lung or GI issues. No family history of malignancy. ALLERGIES: None. HOME MEDICATIONS: None. PRESENT MEDICATIONS: Tylenol, Ventolin, DuoNeb, Lovenox, Pepcid, Robitussin, [place], levofloxacin, va ncomycin p.o., loperamide p.r.n. PHYSICAL EXAMINATION: VITAL SIGNS: Temperature is 98, T-max 101 on 08/06/2017. GEERAL: He has got a cough that is mildly productive. HEENT: Oropharynx without lesions. NECK: Supple, no nodes. LUNGS: Notable for wheezing and rhonchi in both bearden, especially lower. HEART: Regular rate and rhythm. ABDOMEN: Slightly protuberant, but nontender, there is no rebound. There is no guarding. EXTREMITIES: No clubbing, cyanosis or edema. LABORATORY DATA: As per HPI. Microbiology this admission. C. diff toxin and antigen on 08/08/2017 negative. Blood cultures negative. Last visit he had a positive Clostridium difficile antigen and t oxin positive Campylobacter antigen, positive lactoferrin, positive occult blood, negative ova and pa rasite. ASSESSMENT: This is a 32-year-old gentleman who was admitted last about 2 weeks ago with diarrheal i llness and a positive C. diff and positive Campylobacter. He was treated for both while in the [facility], but it appears did not receive treatment when he went home. He returned with diarrhea, fever, a nd some cough that seemed to have developed a couple days before admission, about 5 days ago. He was admitted about 2 days ago on Monday. He was empirically started on the vancomycin antibiotic covera ge for possible pneumonia with chest x-ray shows multifocal pneumonia. RECOMMENDATIONS: 1. Would go ahead and retreat the C. diff with vancomycin 125 p.o. q.i.d. for 10 days and probiotic for 1 month. 2. Would go ahead and treat his pneumonia, this appears real. 3. Agree with getting HIV, I would check a TB screen in this gentleman although the x-ray and CAT sc an do not look typical of that. If respiratory status does not improve, I would consult Pulmonary. It is unclear if this is aspiration or some other type of multifocal pneumonia. 4. If diarrhea persists, would go ahead and recheck the Campylobacter as well. 5. We will follow along with you.
--- NOTE | 2017-08-08 13:51 | PDOC.PN ---
- Subjective Encounter Start Date: 08/08/17 Encounter Start Time: 09:45 Subjective: c/o diarrhea 5-6 times/day, watery, no blood -: has cough with yellow tinge sputum -: admits to using cocaine weekly, thc daily, no tobacco - Objective Resuscitation Status: Resuscitation Status FULL:Full Resuscitation MAR Reviewed: Yes Vital Signs & Weight: Vital Signs (12 hours) Temp Pulse Resp BP Pulse Ox 08/08/17 10:57 98.3 F 63 18 112/78 96 08/08/17 08:00 98.0 F 80 16 98 08/08/17 07:31 98.0 F 80 16 129/63 98 08/08/17 06:54 78 16 95 08/08/17 03:57 95 Weight Weight 234 lb 8 oz I&O: 08/07/17 08/08/17 08/09/17 06:59 06:59 06:59 Intake Total 1008 Balance 1008 Result Diagrams: 08/07/17 04:25 08/07/17 04:25 Phys Exam - Physical Examination HEENT: PERRLA, moist MMs Neck: no JVD, supple Respiratory: no wheezing, no rales rhonchi+ Cardiovascular: RRR, no significant murmur Gastrointestinal: soft, no distention, positive bowel sounds no rigidity or guarding Musculoskeletal: no edema, pulses present Neurological: non-focal, moves all 4 limbs Psychiatric: normal affect, A&O x 3 Dx/Plan (1) PNA (pneumonia) Code(s): J18.9 - PNEUMONIA, UNSPECIFIED ORGANISM Status: Acute Qualifiers: Pneumonia type: due to unspecified organism Laterality: bilateral (2) C. difficile colitis Status: Acute (3) Obesity (BMI 30-39.9) Code(s): E66.9 - OBESITY, UNSPECIFIED Status: Chronic (4) GERD (gastroesophageal reflux disease) Code(s): K21.9 - GASTRO-ESOPHAGEAL REFLUX DISEASE WITHOUT ESOPHAGITIS Status: Chronic Qualifiers: Esophagitis presence: esophagitis presence not specified Qualified Code(s) : K21.9 - Gastro-esophageal reflux disease without esophagitis Comment: Continue Pepcid 20mg BID (5) Substance abuse Code(s): F19.10 - OTHER PSYCHOACTIVE SUBSTANCE ABUSE, UNCOMPLICATED Status: Acute - Plan is on levaquin and oral vanc -: stool x1 this admission is -ve for cdiff, but has not completed course for -: -c.diff in july. -: D/w -: CT chest results reviewed * . Review of Systems - Medications/Allergies Allergies/Adverse Reactions: Allergies Allergy/AdvReac Type Severity Reaction Status Date / Time No Known Drug Allergies Allergy Verified 08/06/17 12:29 Medications: Current Medications Acetaminophen (Tylenol) 650 mg PO Q4H PRN PRN Reason: Headache/Fever or Pain Last Admin: 08/06/17 20:47 Dose: 650 mg Hydrocodone Bitart/Acetaminophen ([place] 5/325) 1 tab PO Q4H PRN PRN Reason: Moderate Pain (4-6) Last Admin: 08/08/17 07:39 Dose: 1 tab Acidophilus (Floranex) 1 tab PO DAILY [facility] Last Admin: 08/08/17 11:23 Dose: 1 tab Albuterol Sulfate (Ventolin) 2.5 mg NEB Q2H PRN PRN Reason: Wheezing Albuterol/Ipratropium (Duoneb) 3 ml NEB [id number] PRN PRN Reason: SOB &/or Wheezing Last Admin: 08/08/17 06:54 Dose: 3 ml Enoxaparin Sodium (Lovenox) 40 mg SC 0900 [facility] Last Admin: 08/08/17 07:40 Dose: 40 mg Famotidine (Pepcid) 20 mg PO BID [facility] Last Admin: 08/08/17 07:40 Dose: 20 mg Guaifenesin/Dextromethorphan (Robitussin Dm) 15 ml PO Q4H PRN PRN Reason: Cough Last Admin: 08/07/17 08:40 Dose: 15 ml Levofloxacin 750 mg/ Device 150 mls @ 100 mls/hr IVPB 1200 [facility] Last Admin: 08/08/17 11:23 Dose: 150 mls Sodium Chloride (Normal Saline 0.9%) 1,000 mls @ 100 mls/hr IV .Q10H [facility] Last Admin: 08/08/17 04:33 Dose: Not Given Loperamide HCl (Imodium) 1 mg PO Q8H PRN PRN Reason: Diarrhea/Loose Stools Last Admin: 08/06/17 21:32 Dose: 1 mg Sodium Chloride (Flush - Normal Saline) 10 ml IVF Q12HR [facility] Last Admin: 08/08/17 07:40 Dose: Not Given Sodium Chloride (Flush - Normal Saline) 10 ml IVF PRN PRN PRN Reason: Saline Flush Vancomycin HCl (First Vancomycin) 125 mg PO QID [facility] Last Admin: 08/08/17 12:19 Dose: 125 mg
[2017-08-08 15:30] LABS: HBCM Index 0.06 S/CO (0-0.79); Hep A IgM AB Non-Reactive (NonReactive); Hep A IgM S/CO 0.13 S/CO (0-0.79); Hepatitis B Core IGM Abs Non-Reactive (NonReactive)
[2017-08-08] MEDS: Guaifenesin DM 100-10/5 ML UDCUP PO PRN (20:26)
[2017-08-09] MEDS: Sodium Chloride 0.9% 1,000 ML IV SCH ×2 (04:11→11:18)
[2017-08-09] MEDS: Vancomycin HCl 25 MG/ML Oral PO SCH ×4 (08:34→19:51)
[2017-08-09] MEDS: Lactinex Tablet PO SCH (08:35)
[2017-08-09] MEDS: Famotidine 20 MG TAB PO SCH ×2 (08:35→19:50)
[2017-08-09] MEDS: Enoxaparin Sodium 40 MG/0.4 ML SYRINGE SC SCH (08:35)
--- NOTE | 2017-08-09 11:51 | PDOC.PN ---
- Subjective Encounter Start Date: 08/09/17 Encounter Start Time: 09:25 Subjective: no diarrhea from last night, no nausea -: abd pain is better -: cough+, sob is better, is amb in hallway - Objective Resuscitation Status: Resuscitation Status FULL:Full Resuscitation MAR Reviewed: Yes Vital Signs & Weight: Vital Signs (12 hours) Temp Pulse Resp BP Pulse Ox 08/09/17 07:37 97.6 F 63 20 99 08/09/17 07:32 97.6 F 63 20 103/62 99 Weight Weight 234 lb 8 oz I&O: 08/08/17 08/09/17 08/10/17 06:59 06:59 06:59 Intake Total 3187 Balance 3187 Result Diagrams: 08/07/17 04:25 08/07/17 04:25 Phys Exam - Physical Examination HEENT: PERRLA, moist MMs Neck: no JVD, supple Respiratory: no rales rhonchi, wheezes+ Cardiovascular: RRR, no significant murmur Gastrointestinal: soft, no distention, positive bowel sounds Musculoskeletal: no edema, pulses present Neurological: non-focal, moves all 4 limbs Psychiatric: normal affect, A&O x 3 Dx/Plan (1) PNA (pneumonia) Code(s): J18.9 - PNEUMONIA, UNSPECIFIED ORGANISM Status: Acute Qualifiers: Pneumonia type: due to unspecified organism Laterality: bilateral (2) C. difficile colitis Status: Acute (3) Obesity (BMI 30-39.9) Code(s): E66.9 - OBESITY, UNSPECIFIED Status: Chronic (4) GERD (gastroesophageal reflux disease) Code(s): K21.9 - GASTRO-ESOPHAGEAL REFLUX DISEASE WITHOUT ESOPHAGITIS Status: Chronic Qualifiers: Esophagitis presence: esophagitis presence not specified Qualified Code(s) : K21.9 - Gastro-esophageal reflux disease without esophagitis Comment: Continue Pepcid 20mg BID (5) Substance abuse Code(s): F19.10 - OTHER PSYCHOACTIVE SUBSTANCE ABUSE, UNCOMPLICATED Status: Acute - Plan is on levaquin, medrol dose pack for likely some allergic bronchitis -: oral vanc for incomplete cdiff treatment in july and now on antibiotics -: dc iv fluids -: dc plan in am if stable -: appreciate help * . Review of Systems - Medications/Allergies Allergies/Adverse Reactions: Allergies Allergy/AdvReac Type Severity Reaction Status Date / Time No Known Drug Allergies Allergy Verified 08/06/17 12:29 Medications: Current Medications Acetaminophen (Tylenol) 650 mg PO Q4H PRN PRN Reason: Headache/Fever or Pain Last Admin: 08/06/17 20:47 Dose: 650 mg Hydrocodone Bitart/Acetaminophen ([place] 5/325) 1 tab PO Q4H PRN PRN Reason: Moderate Pain (4-6) Last Admin: 08/08/17 07:39 Dose: 1 tab Acidophilus (Floranex) 1 tab PO DAILY [facility] Last Admin: 08/09/17 08:35 Dose: 1 tab Albuterol Sulfate (Ventolin) 2.5 mg NEB Q2H PRN PRN Reason: Wheezing Albuterol/Ipratropium (Duoneb) 3 ml NEB [id number] PRN PRN Reason: SOB &/or Wheezing Last Admin: 08/08/17 06:54 Dose: 3 ml Enoxaparin Sodium (Lovenox) 40 mg SC 0900 [facility] Last Admin: 08/09/17 08:35 Dose: 40 mg Famotidine (Pepcid) 20 mg PO BID [facility] Last Admin: 08/09/17 08:35 Dose: 20 mg Guaifenesin/Dextromethorphan (Robitussin Dm) 15 ml PO Q4H PRN PRN Reason: Cough Last Admin: 08/08/17 20:26 Dose: 15 ml Levofloxacin 750 mg/ Device 150 mls @ 100 mls/hr IVPB 1200 [facility] Last Admin: 08/09/17 11:18 Dose: 150 mls Sodium Chloride (Normal Saline 0.9%) 1,000 mls @ 100 mls/hr IV .Q10H [facility] Last Admin: 08/09/17 11:18 Dose: 1,000 mls Loperamide HCl (Imodium) 1 mg PO Q8H PRN PRN Reason: Diarrhea/Loose Stools Last Admin: 08/06/17 21:32 Dose: 1 mg Methylprednisolone (Medrol [place]) 4 mg PO ASDIR [facility] Sodium Chloride (Flush - Normal Saline) 10 ml IVF Q12HR [facility] Last Admin: 08/09/17 08:36 Dose: Not Given Sodium Chloride (Flush - Normal Saline) 10 ml IVF PRN PRN PRN Reason: Saline Flush Vancomycin HCl (First Vancomycin) 125 mg PO QID [facility] Last Admin: 08/09/17 08:34 Dose: 125 mg
[2017-08-09] MEDS ORDERED: methylPREDNISolone 4 mg Tablet PO SCH (12:00)
[2017-08-09] MEDS: methylPREDNISolone 4 mg Tablet PO SCH ×3 (12:30→19:50)
--- NOTE | 2017-08-09 19:05 | PRG ---
DATE OF SERVICE: 08/09/2017 SUBJECTIVE: Mr. Rogers's diarrhea is markedly improved. He reports that he is not having diarrhea l onger. His cough is persistent and he is here short of breath. OBJECTIVE: VITAL SIGNS: Temperature is 97.4, pulse 63, blood pressure 103/62. ABDOMEN: Soft, nontender. LUNGS: Diffuse wheezing and rhonchi bilaterally. LABORATORY STUDIES: Hepatitis A, B, and C and HIV negative. Respiratory, moderate gram-positive vaibhav ci in pairs, chains and clusters. ASSESSMENT AND PLAN: 1. Colitis, Clostridium difficile, inadequate treatment last visit, improving. We would continue pr obiotic for 1 month and vancomycin p.o. for 10 days. 2. Pneumonia. This has been the main issue keeping the hospital and I will defer this treatment to the hospitalist and whatever the patient needs to be on is reasonable. If he has been on prolonged a ntibiotics for pneumonia, I would recommend continuing him on vancomycin orally for about 7 days unti l after the antibiotics for respiratory infection are discontinued.
[2017-08-10 07:27] VITALS: BP 120/86; TEMP 97.8
[2017-08-10] MEDS: Vancomycin HCl 25 MG/ML Oral PO SCH ×2 (08:16→11:48)
[2017-08-10] MEDS: Famotidine 20 MG TAB PO SCH (08:16)
[2017-08-10] MEDS: Lactinex Tablet PO SCH (08:17)
[2017-08-10] MEDS: methylPREDNISolone 4 mg Tablet PO SCH ×2 (08:17→11:48)
[2017-08-10] MEDS: Enoxaparin Sodium 40 MG/0.4 ML SYRINGE SC SCH (08:23)
--- NOTE | 2017-08-10 11:00 | PDOC.PN ---
- Subjective Encounter Start Date: 08/10/17 Encounter Start Time: 07:15 Subjective: no further diarrhea -: breathing better - Objective Resuscitation Status: Resuscitation Status FULL:Full Resuscitation MAR Reviewed: Yes Vital Signs & Weight: Vital Signs (12 hours) Temp Pulse Resp BP Pulse Ox 08/10/17 08:00 97.8 F 76 16 08/10/17 07:24 97.8 F 76 16 120/86 97 Weight Weight 234 lb 8 oz I&O: 08/09/17 08/10/17 08/11/17 06:59 06:59 06:59 Intake Total 3187 1999 Balance 3187 1999 Result Diagrams: 08/07/17 04:25 08/07/17 04:25 Phys Exam - Physical Examination HEENT: PERRLA, moist MMs Neck: no nodes, no JVD Respiratory: no wheezing rhonchi++ Cardiovascular: RRR, no significant murmur Gastrointestinal: soft, non-tender, positive bowel sounds Musculoskeletal: no edema, pulses present Neurological: non-focal, moves all 4 limbs Psychiatric: normal affect, A&O x 3 Dx/Plan (1) PNA (pneumonia) Code(s): J18.9 - PNEUMONIA, UNSPECIFIED ORGANISM Status: Acute Qualifiers: Pneumonia type: due to unspecified organism Laterality: bilateral (2) C. difficile colitis Status: Acute (3) Obesity (BMI 30-39.9) Code(s): E66.9 - OBESITY, UNSPECIFIED Status: Chronic (4) GERD (gastroesophageal reflux disease) Code(s): K21.9 - GASTRO-ESOPHAGEAL REFLUX DISEASE WITHOUT ESOPHAGITIS Status: Chronic Qualifiers: Esophagitis presence: esophagitis presence not specified Qualified Code(s) : K21.9 - Gastro-esophageal reflux disease without esophagitis Comment: Continue Pepcid 20mg BID (5) Substance abuse Code(s): F19.10 - OTHER PSYCHOACTIVE SUBSTANCE ABUSE, UNCOMPLICATED Status: Acute - Plan hemostable -: cm for help with outpt meds -: prednisone taper, alb inhaler, oral vanc for 17 days, levaq for 7 days -: dc pt home -: d/w pt and at bedside, no smoking/drug abuse and counselled * . Review of Systems - Medications/Allergies Allergies/Adverse Reactions: Allergies Allergy/AdvReac Type Severity Reaction Status Date / Time No Known Drug Allergies Allergy Verified 08/06/17 12:29 Medications: Current Medications Acetaminophen (Tylenol) 650 mg PO Q4H PRN PRN Reason: Headache/Fever or Pain Last Admin: 08/06/17 20:47 Dose: 650 mg Hydrocodone Bitart/Acetaminophen ([place] 5/325) 1 tab PO Q4H PRN PRN Reason: Moderate Pain (4-6) Last Admin: 08/08/17 07:39 Dose: 1 tab Acidophilus (Floranex) 1 tab PO DAILY [facility] Last Admin: 08/10/17 08:17 Dose: 1 tab Albuterol Sulfate (Ventolin) 2.5 mg NEB Q2H PRN PRN Reason: Wheezing Albuterol/Ipratropium (Duoneb) 3 ml NEB [id number] PRN PRN Reason: SOB &/or Wheezing Last Admin: 08/08/17 06:54 Dose: 3 ml Enoxaparin Sodium (Lovenox) 40 mg SC 0900 [facility] Last Admin: 08/10/17 08:23 Dose: Not Given Famotidine (Pepcid) 20 mg PO BID [facility] Last Admin: 08/10/17 08:16 Dose: 20 mg Guaifenesin/Dextromethorphan (Robitussin Dm) 15 ml PO Q4H PRN PRN Reason: Cough Last Admin: 08/08/17 20:26 Dose: 15 ml Levofloxacin 750 mg/ Device 150 mls @ 100 mls/hr IVPB 1200 [facility] Last Admin: 08/10/17 08:18 Dose: 150 mls Loperamide HCl (Imodium) 1 mg PO Q8H PRN PRN Reason: Diarrhea/Loose Stools Last Admin: 08/06/17 21:32 Dose: 1 mg Methylprednisolone (Medrol) 4 mg PO 0800,1300,1800 [facility] Stop: 08/10/17 18:01 Last Admin: 08/10/17 08:17 Dose: 4 mg Methylprednisolone (Medrol) 8 mg PO 2100 [facility] Stop: 08/10/17 21:01 Methylprednisolone (Medrol) 4 mg PO 0800,1200,1700,2100 [facility] Stop: 08/11/17 21:01 Methylprednisolone (Medrol) 4 mg PO 0800,1200,1700 [facility] Stop: 08/12/17 17:01 Methylprednisolone (Medrol) 4 mg PO 0800,1700 [facility] Stop: 08/13/17 17:01 Methylprednisolone (Medrol) 4 mg PO 0800 [facility] Stop: 08/14/17 08:01 Sodium Chloride (Flush - Normal Saline) 10 ml IVF Q12HR [facility] Last Admin: 08/10/17 08:23 Dose: 10 ml Sodium Chloride (Flush - Normal Saline) 10 ml IVF PRN PRN PRN Reason: Saline Flush Vancomycin HCl (First Vancomycin) 125 mg PO QID [facility] Last Admin: 08/10/17 08:16 Dose: 125 mg
[2017-08-10] MEDS ORDERED: methylPREDNISolone 4 mg Tablet PO SCH (21:00)
[2017-08-11] MEDS ORDERED: methylPREDNISolone 4 mg Tablet PO SCH (08:00)
--- NOTE | 2017-08-11 11:50 | DIS ---
DATE OF ADMISSION: 08/06/2017 DATE OF DISCHARGE: 08/10/2017 DISCHARGE DISPOSITION: To home. PRIMARY DISCHARGE DIAGNOSES: Pneumonia, inadequately treated Clostridium difficile colitis due to maggie alas's noncompliance, substance abuse, gastroesophageal reflux disease, obesity. PROCEDURES DONE DURING HOSPITALIZATION: CT chest without contrast done showed multifocal bronchopneu monia. CT of the abdomen and pelvis done showed findings of nonspecific small bowel loops which coul d represent enteritis or mild ileus. Blood cultures x2 were negative. H&H 14 and 43, white count of 4.5, platelet count 172, MCV 89. Liver enzymes within normal limits. Urine drug screen was positiv e for marijuana and opiates. Acute hepatitis panel was negative. HIV 1 and 2 nonreactive. DISCHARGE MEDICATIONS: Levaquin 500 mg p.o. daily for 7 days, vancomycin 125 mg p.o. 4 times daily f or 17 days, prednisone taper starting at 10 mg p.o. twice daily over a course of 10 days, Floranex 1 tab daily for 1 month, albuterol inhaler q.6 hourly p.r.n. ALLERGIES: No known drug allergies. INPATIENT CONSULTS: Dr. Webb for Gastroenterology. DISCHARGE PLAN: The patient to follow up with primary care physician in 1 week. BRIEF COURSE DURING HOSPITALIZATION: The patient initially came in with complaints of abdominal pain and shortness of breath. Initial CT of the abdomen and pelvis done was suggestive of possible left lung pneumonia. A CT chest without contrast done showed multifocal pneumonia. He was also discharge d in July after having had C. difficile colitis. The patient had admitted to not completing antibio tics as they were too expensive to buy vancomycin. In view of him requiring antibiotics for pneumoni a, the patient was placed on vancomycin four times daily. He also had diarrhea on arrival, which got resolved in 2 days. He has had consultation with Dr. Webb for Gastroenterology as well. The trevin ent responded well to above measures. He was counseled with regards to marijuana abuse. Case manage ment consultation was requested for help with medications prior to discharge in view of him being non compliant with completing treatment for C. diff in July. Please see a [id number] documentation on [employer] for the day of discharge.
[2017-08-12] MEDS ORDERED: methylPREDNISolone 4 mg Tablet PO SCH (08:00)
[2017-08-13] MEDS ORDERED: methylPREDNISolone 4 mg Tablet PO SCH (08:00)
[2017-08-14] MEDS ORDERED: methylPREDNISolone 4 mg Tablet PO SCH (08:00)
== END 2017-08-10 17:19 | disposition home or self-care (01) | DRG 193 ==
LOC: ERS 08:10 → T4-A 11:41
PROVIDERS: ADMIT Family Medicine; ATTEND Family Medicine
DX: J18.9 Pneumonia, unspecified organism (principal); J96.01 Acute respiratory failure with hypoxia; K56.7 Ileus, unspecified; A04.72 Enterocolitis due to Clostridium difficile, not specified as recurrent; K21.9 Gastro-esophageal reflux disease without esophagitis; Y95 Nosocomial condition; E66.9 Obesity, unspecified; F19.10 Other psychoactive substance abuse, uncomplicated; Z68.36 Body mass index [BMI] 36.0-36.9, adult
CPT/HCPCS: 36415; 71045; 71250; 74177; 80048; 80053; 80074; 80306; 83605; 83690; 85025; 86480; 87040; 87070; 87205; 87324; 87389; 87449; 94640; 94760; 96361; 96365; 96375; A4216; J0696; J1650; J1956; J2270; J2543; J3370; J7050; J7620

== ENCOUNTER 2017-08-30 09:32 | Outpatient (CLI) | payer SELFPAY | END 2017-08-30 09:33 | disposition home or self-care (01) | LOC: BICRAD 09:32 | PROVIDERS: ATTEND Family Medicine | DX: J18.9 Pneumonia, unspecified organism (principal) | CPT/HCPCS: 71046 ==

== ENCOUNTER 2017-11-06 06:26 | Emergency (ER) | payer SELFPAY ==
[2017-11-06] MEDS ORDERED: Lidocaine Viscous Sol 2% 15 ml UD Cup ONE (07:33)
[2017-11-06] MEDS ORDERED: Mag-Al 1200 mg/1200 mg/30 ML UDCUP ONE (07:33)
[2017-11-06 07:43] LABS: #Eosinphils 0.1 thou/uL (0.0-0.7); #Lymphocytes 2.9 thou/uL (1.20-3.40); #Monocytes 1.1 thou/uL (0.11-0.59); #Neutrophils 7.8 thou/uL (1.40-6.50); %Basophils 0.4 % (0.0-1.0); %Eosinophils 0.5 % (0.0-10.0); %Lymphocytes 24.4 % (21.0-51.0); %Monocytes 9.2 % (0.0-10.0); %Neutrophils 65.5 % (42.0-75.0); Hemoglobin 14.3 g/dL (14.0-18.0); Mean Corpuscular HGB CONC 33.6 g/dL (32.0-36.0); Mean Corpuscular Hemoglobin 29.7 pg (27.0-31.0); Mean Corpuscular Volume 88.2 fL (78.0-98.0); Mean Platelet Volume 7.8 fL (7.4-10.4); Platelet Count 198 thou/uL (130-400); RBC Distribution Width 12.7 % (11.5-14.5); Red Blood Cell (RBC) Count 4.83 mill/uL (4.70-6.10); White Blood Cell (WBC) Count 11.9 thou/uL (4.8-10.8)
[2017-11-06 08:05] LABS: ALT (SGPT) 32 U/L (8-55); AST (SGOT) 16 U/L (5-34); Albumin 4.1 g/dL (3.5-5.0); Alkaline Phosphatase 89 U/L (40-150); Anion Gap 14 mmol/L (10-20); BUN (Urea Nitrogen) 12 mg/dL (8.9-20.6); Bilirubin, Total 0.8 mg/dL (0.2-1.2); Calc. Creatinine Clearance 0 mL/min (70-130); Calcium 8.8 mg/dL (7.8-10.44); Carbon Dioxide 20 mmol/L (22-29); Chloride 107 mmol/L (98-107); Estimated GFR-MDRD Greater than 90; Glucose 99 mg/dL (70-105); Lipase 18 U/L (8-78); Potassium 3.7 mmol/L (3.5-5.1); Protein, Total 7.1 g/dL (6.0-8.3); Sodium 137 mmol/L (136-145)
--- NOTE | 2017-11-06 09:01 | ULT ---
ULTRASOUND ABDOMEN: Date: 11/06/17 HISTORY: 32-year-old male with abdominal pain. FINDINGS: The liver demonstrates increased echogenicity without focal mass or intrahepatic ductal dilatation. N o gallstones, gallbladder wall thickening, or pericholecystic fluid is seen. The pancreas is not well visualized due to overlying bowel gas. The common duct measures 4.0 mm in diameter. The right kidney is normal. No free fluid is seen in Morison's pouch. IMPRESSION: 1. Fatty liver. 2. No evidence of cholelithiasis. POS: BRIANNA
== END 2017-11-06 11:15 | disposition home or self-care (01) ==
LOC: ERS 06:26
DX: R10.11 Right upper quadrant pain (principal); K76.0 Fatty (change of) liver, not elsewhere classified; K21.9 Gastro-esophageal reflux disease without esophagitis; R42 Dizziness and giddiness; R50.9 Fever, unspecified
CPT/HCPCS: 36415; 76705; 80053; 83690; 85025

== ENCOUNTER 2018-03-09 18:44 | Emergency (ER) | payer SELFPAY ==
[2018-03-09] MEDS ORDERED: Ondansetron PF 4 MG/2 ML Vial ONE (19:05)
[2018-03-09 19:27] LABS: #Lymphocytes 0.9 thou/uL (1.20-3.40); #Monocytes 0.5 thou/uL (0.11-0.59); #Neutrophils 9.3 thou/uL (1.40-6.50); %Basophils 0.1 % (0.0-1.0); %Eosinophils 0.2 % (0.0-10.0); %Lymphocytes 8.7 % (21.0-51.0); %Monocytes 4.4 % (0.0-10.0); %Neutrophils 86.5 % (42.0-75.0); Hemoglobin 16.9 g/dL (14.0-18.0); Mean Corpuscular HGB CONC 34.3 g/dL (32.0-36.0); Mean Corpuscular Hemoglobin 30.5 pg (27.0-31.0); Platelet Count 218 thou/uL (130-400); RBC Distribution Width 12.7 % (11.5-14.5); Red Blood Cell (RBC) Count 5.53 mill/uL (4.70-6.10); White Blood Cell (WBC) Count 10.8 thou/uL (4.8-10.8)
[2018-03-09 19:47] LABS: ALT (SGPT) 42 U/L (8-55); AST (SGOT) 23 U/L (5-34); Albumin 4.7 g/dL (3.5-5.0); Alkaline Phosphatase 101 U/L (40-150); Anion Gap 13 mmol/L (10-20); BUN (Urea Nitrogen) 14 mg/dL (8.9-20.6); Bilirubin, Total 0.9 mg/dL (0.2-1.2); Calc. Creatinine Clearance 0 mL/min (70-130); Calcium 9.3 mg/dL (7.8-10.44); Carbon Dioxide 20 mmol/L (22-29); Chloride 104 mmol/L (98-107); Estimated GFR-MDRD Greater than 90; Globulin 3.6 g/dL (2.4-3.5); Glucose 97 mg/dL (70-105); Lipase 24 U/L (8-78); Potassium 4.4 mmol/L (3.5-5.1); Protein, Total 8.3 g/dL (6.0-8.3); Sodium 133 mmol/L (136-145)
[2018-03-09 20:02] LABS: Bilirubin Negative (Negative); Blood, Urine Negative (Negative); Clarity CLEAR (Clear); Glucose, Urine (Dipstick) Negative (Negative); Leukocyte Negative (Negative); Nitrite Negative (Negative); Protein, Urine (Dipstick) Negative (Neg-Trace); Specific Gravity, Urine 1.035 (1.002-1.036); Urobilinogen 0.2 mg/dL (0.2-1.0)
[2018-03-09] MEDS ORDERED: Ketorolac Tromethamine 30 MG/ML VIAL ONE (20:56)
== END 2018-03-09 21:40 | disposition home or self-care (01) ==
LOC: ERS 18:44
DX: A09 Infectious gastroenteritis and colitis, unspecified (principal); K21.9 Gastro-esophageal reflux disease without esophagitis
CPT/HCPCS: 80053; 81003; 82274; 83630; 83690; 85025; 87045; 87046; 87324; 87449; 87899; 96361; 96372; 96374; 96375; J1885; J2405

== ENCOUNTER 2018-10-01 08:53 | Emergency (ER) | payer SELFPAY ==
[2018-10-01] MEDS ORDERED: Ketorolac Tromethamine 60 MG/2 ML VIAL ONE (09:46)
[2018-10-01] MEDS ORDERED: Dexamethasone 4 mg/ml Vial ONE (09:46)
--- NOTE | 2018-10-01 10:01 | RAD ---
Exam:Left ankle 3 views HISTORY: Slip and fall. Pain. COMPARISON: None FINDINGS: Ankle mortise is intact. Joint spaces are preserved. No fracture. No significant soft tissu e swelling IMPRESSION: Unremarkable left ankle 3 views. No fracture.
--- NOTE | 2018-10-01 10:11 | RAD ---
Exam: Cervical spine 4 views HISTORY: Slip and fall. Pain. FINDINGS: Predental space is normal. No prevertebral soft tissue swelling. Cervical spine is adequate ly assessed from C1 through the C7 vertebral body on the lateral images. Limited evaluation of the cervical thoracic junction. Straightening of normal cervical lordosis may be due to patient position, muscle spasm or cervical collar. Limited evaluation of the odontoid process on the open-mouth view. Lateral masses of C1 and C2 articu late appropriately On the AP projection, no malalignment. IMPRESSION: 1. No cervical spine fracture. Limited evaluation of the cervicothoracic junction. 2. If there is continued suspicion for fracture, CT can be performed. 3. Straightening of normal cervical lordosis as above. MRI if there is concern for ligamentous injury .
--- NOTE | 2018-10-01 10:15 | RAD ---
EXAM: Chest PA and lateral: HISTORY: Slip and fall. Pain. COMPARISON: 06/01/2016 FINDINGS: Heart: Normal cardiac silhouette Aorta: Unremarkable Pulmonary vessels: Normal Costophrenic angles: Costophrenic angles are clear. Lungs: No consolidation or masses. Pneumothorax: No pneumothorax Osseous structures: No osseous abnormalities IMPRESSION: No acute cardiopulmonary process.
== END 2018-10-01 10:48 | disposition home or self-care (01) ==
LOC: ERS 08:53
DX: S13.9XXA Sprain of joints and ligaments of unspecified parts of neck, initial encounter (principal); S93.402A Sprain of unspecified ligament of left ankle, initial encounter; I10 Essential (primary) hypertension; M62.830 Muscle spasm of back; W18.30XA Fall on same level, unspecified, initial encounter
CPT/HCPCS: 71046; 72040; 96372; J1100; J1885

== ENCOUNTER 2019-01-21 09:00 | Emergency (ER) | payer SELFPAY ==
[2019-01-21] MEDS ORDERED: Ketorolac Tromethamine 30 MG/ML VIAL ONE (09:48)
--- NOTE | 2019-01-21 10:45 | RAD ---
RADIOGRAPH CHEST 2 VIEWS: DATE: 01/21/19 HISTORY: 33-year-old male with chest pain. FINDINGS: There is no air space density, pulmonary edema, pleural effusion, pneumothorax, or cardiomegaly. IMPRESSION: No acute cardiopulmonary findings. jn [] POS: [facility]
== END 2019-01-21 10:10 | disposition home or self-care (01) ==
LOC: ERS 09:00
DX: S29.012A Strain of muscle and tendon of back wall of thorax, initial encounter (principal); K21.9 Gastro-esophageal reflux disease without esophagitis; Z79.899 Other long term (current) drug therapy; X58.XXXA Exposure to other specified factors, initial encounter
CPT/HCPCS: 71046; 96372; J1885

== ENCOUNTER 2019-10-14 15:28 | Emergency (ER) | payer SELFPAY ==
[2019-10-14 16:25] LABS: #Basophils 0.1 thou/uL (0.0-0.2); #Eosinphils 0.1 thou/uL (0.0-0.7); #Lymphocytes 2.4 thou/uL (1.20-3.40); #Monocytes 0.5 thou/uL (0.11-0.59); %Basophils 0.7 % (0.0-1.0); %Eosinophils 1.1 % (0.0-10.0); %Lymphocytes 30.5 % (21.0-51.0); %Monocytes 5.8 % (0.0-10.0); %Neutrophils 61.9 % (42.0-75.0); Mean Corpuscular HGB CONC 33.9 g/dL (32.0-36.0); Mean Corpuscular Hemoglobin 30.4 pg (27.0-31.0); Mean Corpuscular Volume 89.7 fL (78.0-98.0); Mean Platelet Volume 8.6 fL (7.4-10.4); Platelet Count 228 thou/uL (130-400); RBC Distribution Width 12.4 % (11.5-14.5); Red Blood Cell (RBC) Count 5.27 mill/uL (4.70-6.10)
[2019-10-14 16:48] LABS: ALT (SGPT) 43 U/L (8-55); AST (SGOT) 24 U/L (5-34); Albumin 4.2 g/dL (3.5-5.0); Alkaline Phosphatase 81 U/L (40-110); Anion Gap 12 mmol/L (10-20); BUN (Urea Nitrogen) 13 mg/dL (8.9-20.6); Bilirubin, Total 0.4 mg/dL (0.2-1.2); Calc. Creatinine Clearance 0 mL/min (70-130); Calcium 8.9 mg/dL (7.8-10.44); Carbon Dioxide 24 mmol/L (22-29); Chloride 106 mmol/L (98-107); Estimated GFR-MDRD Greater than 90; Globulin 3.1 g/dL (2.4-3.5); Glucose 140 mg/dL (70-105); Lipase 29 U/L (8-78); Potassium 3.7 mmol/L (3.5-5.1); Protein, Total 7.3 g/dL (6.0-8.3); Sodium 138 mmol/L (136-145)
== END 2019-10-14 20:58 | disposition left against medical advice (07) ==
LOC: ERS 15:28
DX: Z53.21 Procedure and treatment not carried out due to patient leaving prior to being seen by health care provider (principal)
CPT/HCPCS: 36415; 80053; 83690; 85025

== ENCOUNTER 2021-05-10 06:14 | Emergency (ER) | payer OTHER, SELFPAY | END 2021-05-10 07:04 | disposition home or self-care (01) | LOC: ERS 06:14 | DX: M62.838 Other muscle spasm (principal); K21.9 Gastro-esophageal reflux disease without esophagitis; X50.0XXA Overexertion from strenuous movement or load, initial encounter; Y92.69 Other specified industrial and construction area as the place of occurrence of the external cause | CPT/HCPCS: 99283 ==